=== PATIENT | male | born 1955 | race African-American/Black ===

== ENCOUNTER 2018-02-07 12:53 | Emergency (ER) | payer SELFPAY ==
[~2018-02-07] VITALS: Ht 172.7 cm; Wt 69.0 kg
[~2018-02-07 12:53] MED LIST: HCTZ
[2018-02-07 13:07] VITALS: BP 118/98
[2018-02-07 13:43] LABS: EOSINOPHILS % 1.6 % (0.0-5.0); HEMATOCRIT. 41.8 % (42.0-52.0); LYMPHOCYTES % 17.4 % (20.0-50.0); MEAN CORPUSCULAR HEMOGLOBIN 27.7 pg (28.0-32.0); MEAN CORPUSCULAR VOLUME 82.6 fL (80.0-94.0); MEAN PLATELET VOLUME 8.9 fl (7.4-10.4); MONOCYTES % 7.6 % (2.0-8.0); NEUTROPHILS % 72.4 % (40.0-76.0); PLATELET 213 x1000/uL (130-400); RED BLOOD CELL COUNT 5.07 mill/uL (4.7-6.1); RED CELL DISTRIBUTION WIDTH 13.3 % (11.6-14.6)
[2018-02-07 13:50] LABS: CHLORIDE 105 mEq/L (98-107)
[2018-02-07 13:52] LABS: INR 1.1; PARTIAL THROMBOPLASTIN TIME 29.2 sec (23.4-31.0); PROTHROMBIN TIME 11.4 sec (9.4-11.6)
[2018-02-07 13:54] LABS: ETHANOL BLOOD < 10 mg/dL
== END 2018-02-07 16:05 | disposition left against medical advice (07) ==
LOC: ER 14:40
DX: R07.9 Chest pain, unspecified (principal); R42 Dizziness and giddiness
CPT/HCPCS: 36415; 80053; 83690; 84484; 85025; 85610; 85730; 93005; 99285; G0482